=== PATIENT | female | born 1985 | race Caucasian/White ===

== ENCOUNTER 2019-11-05 16:25 | Emergency (ER) | payer MEDICAID ==
[~2019-11-05] VITALS: Ht 157.5 cm; Wt 58.1 kg
[2019-11-05 16:43] VITALS: Ht 157.5 cm; Wt 58.1 kg
[2019-11-05 19:07] VITALS: BP 109/82
== END 2019-11-05 19:07 | disposition home or self-care (01) ==
LOC: ED 16:25
DX: F41.9 Anxiety disorder, unspecified (principal); R11.10 Vomiting, unspecified; F17.210 Nicotine dependence, cigarettes, uncomplicated
CPT/HCPCS: J2060; J2405; J7030